=== PATIENT | male | born 1935 | race Caucasian/White ===

== ENCOUNTER 2017-10-23 12:01 | Inpatient (IN) | payer MEDICARE ==
[2017-10-23 13:11] LABS: ADD MAN DIFF? NO
[2017-10-23 13:24] LABS: BASO % 1 % (0-3); EOS # 0.1 x10^3/uL (0.0-0.7); EOS % 3 % (0-3); HEMATOCRIT 39.8 % (39.0-53.0); HEMOGLOBIN 13.1 g/dL (13.0-17.5); LYMPH # 0.7 x10^3/uL (1.0-4.8); LYMPH % 23 % (24-48); MEAN CORPUSCULAR HEMOGLOBIN 29 pg (25-35); MEAN CORPUSCULAR HGB CONC 33 g/dL (31-37); MEAN CORPUSCULAR VOLUME 89 fL (79-100); MONO # 0.2 x10^3/uL (0.0-1.1); MONO % 6 % (0-9); NEUT # 1.9 x10^3uL (1.8-7.7); NEUT % 66 % (31-73); PLATELET COUNT 125 x10^3/uL (140-400); RED BLOOD COUNT 4.47 x10^6/uL (4.30-5.70); RED CELL DISTRIBUTION WIDTH 14.3 % (11.5-14.5); WHITE BLOOD COUNT 2.9 x10^3/uL (4.0-11.0)
[2017-10-23 13:32] LABS: ANION GAP 7 (6-14); BLOOD UREA NITROGEN 11 mg/dL (8-26); BUN/CREATININE RATIO 11 (6-20); CALCIUM 8.4 mg/dL (8.5-10.1); CARBON DIOXIDE 31 mmol/L (21-32); CHLORIDE 103 mmol/L (98-107); GFR 71.7; GLUCOSE 375 mg/dL (70-99); POTASSIUM 4.3 mmol/L (3.5-5.1); SODIUM 141 mmol/L (136-145)
[2017-10-23 13:43] LABS: ALBUMIN 2.9 g/dL (3.4-5.0); ALBUMIN/GLOBULIN RATIO 0.9 (1.0-1.7); ALK PHOS 60 U/L (46-116); ALT (SGPT) 21 U/L (16-63); AST (SGOT) 16 U/L (15-37); TOTAL BILIRUBIN 0.3 mg/dL (0.2-1.0); TOTAL PROTEIN 6.3 g/dL (6.4-8.2)
[2017-10-23] MEDS ORDERED: DEXTROSE 50% 25 GM / 50ML DISP.SYRIN. IV ×2 (14:15)
[2017-10-23] MEDS ORDERED: ALBUTEROL SULFATE 2.5 MG/3 ML NEBU. NEB (14:15)
[2017-10-23] MEDS ORDERED: hydrALAZINE 20 MG/ML VIAL. IVP (14:30)
[2017-10-23] MEDS: POTASSIUM CL 20MEQ D5-0.45NACL 1,000 ML IV (14:59)
[2017-10-23] MEDS: GABAPENTIN 300 MG CAPSULE. PO ×2 (14:59→21:19)
[2017-10-23] MEDS: ENOXAPARIN 40 MG/0.4 ML SYRINGE. SQ (15:00)
[2017-10-23 17:02] LABS: POC GLUCOSE 354 mg/dL (70-99)
[2017-10-23] MEDS: DICYCLOMINE HCL 10 MG CAPSULE PO ×2 (17:16→21:19)
[2017-10-23] MEDS: INSULIN ASPART 300 UNITS/3 ML INSULN.PEN SQ (17:22)
[2017-10-23 19:01] LABS: THYROID STIM HORMONE (TSH) 2.195 uIU/mL (0.358-3.74)
[2017-10-23] MEDS: IPRATRPIUM/ALBUTEROL 0.5/2.5MG 3 ML NEBU. NEB (20:20)
[2017-10-23 20:39] LABS: VITAMIN-B12 538 pg/mL (247-911)
[2017-10-23 21:00] LABS: POC GLUCOSE 407 mg/dL (70-99)
[2017-10-23] MEDS: SIMVASTATIN 10 MG TABLET PO (21:19)
[2017-10-23] MEDS: LACTOBACILLUS RHAMNOSUS GG 1 CAPSULE. PO (21:19)
[2017-10-23] MEDS: INSULIN DETEMIR 300 UNITS/3 ML INSULN.PEN. SQ (21:25)
[2017-10-23] MEDS: MEMANTINE 10 MG TABLET. PO (21:25)
[2017-10-23 21:41] LABS: BILIRUBIN,URINE NEGATIVE (NEG); CLARITY,URINE CLEAR; COLOR,URINE YELLOW; GLUCOSE,URINE >=1000 mg/dL (NEG); NITRITE,URINE NEGATIVE (NEG); PROTEIN,URINE NEGATIVE (NEG-TRACE); UROBILINOGEN,URINE 0.2 mg/dL (0.2 mg/dL)
[2017-10-23 21:46] LABS: BACTERIA,URINE 0 /HPF (0-FEW); RBC,URINE 0 /HPF (0-2); SQUAMOUS EPITHELIAL CELL,UR OCC /LPF
[2017-10-23 21:47] LABS: WBC,URINE RARE /HPF (0-4); YEAST,URINE PRESENT /HPF
[2017-10-24] MEDS: POTASSIUM CL 20MEQ D5-0.45NACL 1,000 ML IV ×2 (03:49→17:41)
[2017-10-24 05:31] LABS: HEMATOCRIT 40.3 % (39.0-53.0); HEMOGLOBIN 13.2 g/dL (13.0-17.5); MEAN CORPUSCULAR HEMOGLOBIN 30 pg (25-35); MEAN CORPUSCULAR HGB CONC 33 g/dL (31-37); MEAN CORPUSCULAR VOLUME 90 fL (79-100); PLATELET COUNT 121 x10^3/uL (140-400); RED BLOOD COUNT 4.46 x10^6/uL (4.30-5.70); RED CELL DISTRIBUTION WIDTH 14.4 % (11.5-14.5); WHITE BLOOD COUNT 3.3 x10^3/uL (4.0-11.0)
[2017-10-24 05:59] LABS: ALBUMIN 2.7 g/dL (3.4-5.0); ALBUMIN/GLOBULIN RATIO 0.8 (1.0-1.7); ALK PHOS 59 U/L (46-116); ALT (SGPT) 18 U/L (16-63); ANION GAP 8 (6-14); AST (SGOT) 15 U/L (15-37); BLOOD UREA NITROGEN 8 mg/dL (8-26); BUN/CREATININE RATIO 9 (6-20); C-REACTIVE PROTEIN 1.9 mg/L (0-3.3); CALCIUM 8.1 mg/dL (8.5-10.1); CARBON DIOXIDE 26 mmol/L (21-32); CHLORIDE 104 mmol/L (98-107); CREATININE 0.9 mg/dL (0.7-1.3); GLUCOSE 303 mg/dL (70-99); POTASSIUM 3.9 mmol/L (3.5-5.1); SODIUM 138 mmol/L (136-145); TOTAL BILIRUBIN 0.3 mg/dL (0.2-1.0)
[2017-10-24 08:14] LABS: SEDIMENTATION RATE 6 (0-15)
[2017-10-24] MEDS: LACTOBACILLUS RHAMNOSUS GG 1 CAPSULE. PO ×2 (08:56→20:31)
[2017-10-24] MEDS: LISINOPRIL 10 MG TABLET PO (08:56)
[2017-10-24] MEDS: ASPIRIN ENTERIC COATED 81 MG TABLET.DR. PO (08:56)
[2017-10-24] MEDS: GABAPENTIN 300 MG CAPSULE. PO ×3 (08:56→20:30)
[2017-10-24] MEDS: DICYCLOMINE HCL 10 MG CAPSULE PO ×4 (08:56→20:32)
[2017-10-24] MEDS: CHOLECALCIFEROL (VITAMIN D3) 1,000 UNIT TABLET PO (08:56)
[2017-10-24] MEDS: MEMANTINE 10 MG TABLET. PO ×2 (08:57→20:30)
[2017-10-24] MEDS: PANTOPRAZOLE IV PUSH 40 MG VIAL. IVP (08:57)
[2017-10-24] MEDS: INSULIN ASPART 300 UNITS/3 ML INSULN.PEN SQ ×3 (09:12→17:44)
[2017-10-24] MEDS: IPRATRPIUM/ALBUTEROL 0.5/2.5MG 3 ML NEBU. NEB ×2 (09:59→20:48)
[2017-10-24 10:26] LABS: POC GLUCOSE 254 mg/dL (70-99)
[2017-10-24] MEDS: CHOLESTYRAMINE/ASPARTAME 4 GM PACKET PO (13:31)
[2017-10-24 13:47] LABS: POC GLUCOSE 317 mg/dL (70-99)
[2017-10-24 17:34] LABS: POC GLUCOSE 278 mg/dL (70-99)
[2017-10-24] MEDS: ENOXAPARIN 40 MG/0.4 ML SYRINGE. SQ (17:34)
[2017-10-24] MEDS: SIMVASTATIN 10 MG TABLET PO (20:32)
[2017-10-24] MEDS: INSULIN DETEMIR 300 UNITS/3 ML INSULN.PEN. SQ (20:48)
[2017-10-24 21:40] LABS: POC GLUCOSE 241 mg/dL (70-99)
[2017-10-25] MEDS: POTASSIUM CL 20MEQ D5-0.45NACL 1,000 ML IV ×2 (05:00→22:01)
[2017-10-25] MEDS: IPRATRPIUM/ALBUTEROL 0.5/2.5MG 3 ML NEBU. NEB ×2 (07:31→21:00)
[2017-10-25 07:40] LABS: POC GLUCOSE 241 mg/dL (70-99)
[2017-10-25] MEDS: CHOLESTYRAMINE/ASPARTAME 4 GM PACKET PO (08:59)
[2017-10-25] MEDS: DICYCLOMINE HCL 10 MG CAPSULE PO ×4 (08:59→22:01)
[2017-10-25] MEDS: CHOLECALCIFEROL (VITAMIN D3) 1,000 UNIT TABLET PO (08:59)
[2017-10-25] MEDS: LISINOPRIL 10 MG TABLET PO (08:59)
[2017-10-25] MEDS: GABAPENTIN 300 MG CAPSULE. PO ×3 (09:00→22:01)
[2017-10-25] MEDS: ASPIRIN ENTERIC COATED 81 MG TABLET.DR. PO (09:00)
[2017-10-25] MEDS: PANTOPRAZOLE 40 MG TABLET.DR. PO (09:00)
[2017-10-25] MEDS: LACTOBACILLUS RHAMNOSUS GG 1 CAPSULE. PO ×2 (09:00→22:01)
[2017-10-25] MEDS: MEMANTINE 10 MG TABLET. PO ×2 (09:00→22:02)
[2017-10-25] MEDS: INSULIN ASPART 300 UNITS/3 ML INSULN.PEN SQ ×3 (09:10→17:49)
[2017-10-25 11:56] LABS: POC GLUCOSE 287 mg/dL (70-99)
[2017-10-25] MEDS: ENOXAPARIN 40 MG/0.4 ML SYRINGE. SQ (14:44)
[2017-10-25 16:49] LABS: POC GLUCOSE 235 mg/dL (70-99)
[2017-10-25 20:57] LABS: POC GLUCOSE 270 mg/dL (70-99)
[2017-10-25] MEDS: SIMVASTATIN 10 MG TABLET PO (22:01)
[2017-10-25] MEDS: INSULIN DETEMIR 300 UNITS/3 ML INSULN.PEN. SQ (22:13)
[2017-10-26 07:00] LABS: ADD MAN DIFF? NO
[2017-10-26 07:08] LABS: BASO % 1 % (0-3); EOS # 0.1 x10^3/uL (0.0-0.7); EOS % 4 % (0-3); HEMATOCRIT 40.7 % (39.0-53.0); HEMOGLOBIN 13.3 g/dL (13.0-17.5); LYMPH # 0.9 x10^3/uL (1.0-4.8); LYMPH % 28 % (24-48); MEAN CORPUSCULAR HEMOGLOBIN 30 pg (25-35); MEAN CORPUSCULAR HGB CONC 33 g/dL (31-37); MEAN CORPUSCULAR VOLUME 90 fL (79-100); MONO # 0.2 x10^3/uL (0.0-1.1); MONO % 6 % (0-9); NEUT # 1.9 x10^3uL (1.8-7.7); NEUT % 60 % (31-73); PLATELET COUNT 115 x10^3/uL (140-400); RED BLOOD COUNT 4.51 x10^6/uL (4.30-5.70); RED CELL DISTRIBUTION WIDTH 14.4 % (11.5-14.5); WHITE BLOOD COUNT 3.2 x10^3/uL (4.0-11.0)
[2017-10-26] MEDS: IPRATRPIUM/ALBUTEROL 0.5/2.5MG 3 ML NEBU. NEB (07:30)
[2017-10-26 07:38] LABS: ALBUMIN 2.8 g/dL (3.4-5.0); ALBUMIN/GLOBULIN RATIO 0.8 (1.0-1.7); ALK PHOS 60 U/L (46-116); ALT (SGPT) 18 U/L (16-63); ANION GAP 7 (6-14); AST (SGOT) 16 U/L (15-37); BLOOD UREA NITROGEN 7 mg/dL (8-26); BUN/CREATININE RATIO 8 (6-20); CALCIUM 8.4 mg/dL (8.5-10.1); CARBON DIOXIDE 30 mmol/L (21-32); CHLORIDE 105 mmol/L (98-107); CREATININE 0.9 mg/dL (0.7-1.3); GLUCOSE 214 mg/dL (70-99); POTASSIUM 4.3 mmol/L (3.5-5.1); SODIUM 142 mmol/L (136-145); TOTAL BILIRUBIN 0.4 mg/dL (0.2-1.0); TOTAL PROTEIN 6.1 g/dL (6.4-8.2)
[2017-10-26 08:01] LABS: POC GLUCOSE 182 mg/dL (70-99)
[2017-10-26] MEDS: POTASSIUM CL 20MEQ D5-0.45NACL 1,000 ML IV (08:05)
[2017-10-26] MEDS: GABAPENTIN 300 MG CAPSULE. PO ×2 (08:05→12:10)
[2017-10-26] MEDS: CHOLECALCIFEROL (VITAMIN D3) 1,000 UNIT TABLET PO (08:05)
[2017-10-26] MEDS: MEMANTINE 10 MG TABLET. PO (08:06)
[2017-10-26] MEDS: LACTOBACILLUS RHAMNOSUS GG 1 CAPSULE. PO (08:06)
[2017-10-26] MEDS: CHOLESTYRAMINE/ASPARTAME 4 GM PACKET PO (08:06)
[2017-10-26] MEDS: DICYCLOMINE HCL 10 MG CAPSULE PO ×2 (08:06→12:10)
[2017-10-26] MEDS: ASPIRIN ENTERIC COATED 81 MG TABLET.DR. PO (08:06)
[2017-10-26] MEDS: PANTOPRAZOLE 40 MG TABLET.DR. PO (08:06)
[2017-10-26] MEDS: LISINOPRIL 10 MG TABLET PO (08:06)
[2017-10-26] MEDS: INSULIN ASPART 300 UNITS/3 ML INSULN.PEN SQ ×2 (08:12→12:26)
[2017-10-26 12:07] LABS: POC GLUCOSE 284 mg/dL (70-99)
== END 2017-10-26 14:20 | disposition home or self-care (01) | DRG 177 ==
LOC: 6 SOUTH 12:01
DX: J69.0 Pneumonitis due to inhalation of food and vomit (principal); G93.41 Metabolic encephalopathy; E11.42 Type 2 diabetes mellitus with diabetic polyneuropathy; F03.90 Unspecified dementia, unspecified severity, without behavioral disturbance, psychotic disturbance, mood disturbance, and anxiety; J98.11 Atelectasis; K21.9 Gastro-esophageal reflux disease without esophagitis; J11.00 Influenza due to unidentified influenza virus with unspecified type of pneumonia; E55.9 Vitamin D deficiency, unspecified; E78.5 Hyperlipidemia, unspecified; I10 Essential (primary) hypertension; I25.10 Atherosclerotic heart disease of native coronary artery without angina pectoris; M10.9 Gout, unspecified; Z87.01 Personal history of pneumonia (recurrent); Z87.891 Personal history of nicotine dependence; Z95.0 Presence of cardiac pacemaker; Z98.41 Cataract extraction status, right eye; Z98.42 Cataract extraction status, left eye
CPT/HCPCS: 36415; 70360; 70450; 70486; 71250; 80053; 81001; 82306; 82607; 82962; 84443; 85025; 85027; 85651; 86140; 92526-GN; 92610-GN; 94640; 94760; 95816; 97110-GO; 97110-GP; 97116-GP; 97162-GP; 97165-GO; 97530-GO; 97530-GP; C9113; J1650; J1815; J1956; J7620

== ENCOUNTER 2017-11-06 17:35 | Inpatient (IN) | payer MEDICARE, OTHER ==
[2017-11-06] MEDS ORDERED: NON FORMULARY ITEM (Albuterol Sulfate (Albuterol Sulfate Conc Neb Soln) 2.5 MG) NEB (18:15)
[2017-11-06] MEDS ORDERED: ONDANSETRON ODT 4 MG TAB.RAPDIS. PO (18:15)
[2017-11-06] MEDS ORDERED: DEXTROSE 50% 25 GM / 50ML DISP.SYRIN. IV (18:30)
[2017-11-06] MEDS ORDERED: ALBUTEROL SULFATE 2.5 MG/3 ML NEBU. NEB (18:45)
[2017-11-06 19:16] LABS: ADD MAN DIFF? NO
[2017-11-06 19:19] LABS: BASO % 1 % (0-3); EOS # 0.1 x10^3/uL (0.0-0.7); EOS % 3 % (0-3); HEMATOCRIT 40.2 % (39.0-53.0); HEMOGLOBIN 13.5 g/dL (13.0-17.5); LYMPH # 0.6 x10^3/uL (1.0-4.8); LYMPH % 24 % (24-48); MEAN CORPUSCULAR HEMOGLOBIN 30 pg (25-35); MEAN CORPUSCULAR HGB CONC 33 g/dL (31-37); MEAN CORPUSCULAR VOLUME 89 fL (79-100); MONO # 0.2 x10^3/uL (0.0-1.1); MONO % 6 % (0-9); NEUT # 1.5 x10^3uL (1.8-7.7); NEUT % 65 % (31-73); PLATELET COUNT 79 x10^3/uL (140-400); RED BLOOD COUNT 4.51 x10^6/uL (4.30-5.70); WHITE BLOOD COUNT 2.3 x10^3/uL (4.0-11.0)
[2017-11-06 19:40] LABS: ALBUMIN 2.9 g/dL (3.4-5.0); ALK PHOS 60 U/L (46-116); ALT (SGPT) 12 U/L (16-63); ANION GAP 2 (6-14); AST (SGOT) 12 U/L (15-37); BLOOD UREA NITROGEN 13 mg/dL (8-26); BUN/CREATININE RATIO 13 (6-20); CALCIUM 8.2 mg/dL (8.5-10.1); CARBON DIOXIDE 33 mmol/L (21-32); CHLORIDE 106 mmol/L (98-107); GFR 71.7; GLUCOSE 145 mg/dL (70-99); POTASSIUM 3.7 mmol/L (3.5-5.1); SODIUM 141 mmol/L (136-145); TOTAL BILIRUBIN 0.3 mg/dL (0.2-1.0); TOTAL PROTEIN 5.9 g/dL (6.4-8.2)
[2017-11-06] MEDS: IPRATRPIUM/ALBUTEROL 0.5/2.5MG 3 ML NEBU. NEB (20:36)
[2017-11-06] MEDS ORDERED: INSULIN DETEMIR 37 UNIT SQ (21:00)
[2017-11-06] MEDS: INSULIN DETEMIR 300 UNITS/3 ML INSULN.PEN. SQ (22:06)
[2017-11-06] MEDS: ENOXAPARIN 40 MG/0.4 ML SYRINGE. SQ (22:07)
[2017-11-06] MEDS: GABAPENTIN 300 MG CAPSULE. PO (22:07)
[2017-11-06] MEDS: SIMVASTATIN 10 MG TABLET PO (22:08)
[2017-11-06] MEDS: MEMANTINE 10 MG TABLET. PO (22:08)
[2017-11-06] MEDS: DICYCLOMINE HCL 10 MG CAPSULE PO (22:08)
[2017-11-07] MEDS: IPRATRPIUM/ALBUTEROL 0.5/2.5MG 3 ML NEBU. NEB ×2 (07:06→19:19)
[2017-11-07 08:03] LABS: POC GLUCOSE 174 mg/dL (70-99)
[2017-11-07] MEDS: GABAPENTIN 300 MG CAPSULE. PO ×3 (08:44→20:34)
[2017-11-07] MEDS: DICYCLOMINE HCL 10 MG CAPSULE PO ×4 (08:44→20:34)
[2017-11-07] MEDS: CHOLECALCIFEROL (VITAMIN D3) 5,000 UNIT CAPSULE PO (08:44)
[2017-11-07] MEDS: LACTOBACILLUS RHAMNOSUS GG 1 CAPSULE. PO ×2 (08:44→17:20)
[2017-11-07] MEDS: ASPIRIN ENTERIC COATED 81 MG TABLET.DR. PO (08:45)
[2017-11-07] MEDS: CHOLESTYRAMINE/ASPARTAME 4 GM PACKET PO (08:45)
[2017-11-07] MEDS: PANTOPRAZOLE 40 MG TABLET.DR. PO (08:45)
[2017-11-07] MEDS: MEMANTINE 10 MG TABLET. PO ×2 (08:45→20:34)
[2017-11-07] MEDS: LISINOPRIL 10 MG TABLET PO (08:46)
[2017-11-07] MEDS: INSULIN ASPART 300 UNITS/3 ML INSULN.PEN SQ ×6 (08:54→17:20)
[2017-11-07] MEDS ORDERED: NON FORMULARY ITEM (Cholecalciferol (Vitamin D3) (Vitamin D3) 1 TAB) PO (09:00)
[2017-11-07 11:34] LABS: POC GLUCOSE 129 mg/dL (70-99)
[2017-11-07 16:45] LABS: POC GLUCOSE 69 mg/dL (70-99)
[2017-11-07 17:23] LABS: POC GLUCOSE 80 mg/dL (70-99)
[2017-11-07] MEDS: SIMVASTATIN 10 MG TABLET PO (20:34)
[2017-11-07] MEDS: ENOXAPARIN 40 MG/0.4 ML SYRINGE. SQ (20:34)
[2017-11-07] MEDS: INSULIN DETEMIR 300 UNITS/3 ML INSULN.PEN. SQ (20:38)
[2017-11-07 20:39] LABS: POC GLUCOSE 243 mg/dL (70-99)
[2017-11-08] MEDS ORDERED: MIDAZOLAM HCL/PF 2 MG/2 ML VIAL. IV (07:15)
[2017-11-08] MEDS ORDERED: LIDOCAINE 1% PF 2 ML VIAL. ID (07:15)
[2017-11-08] MEDS ORDERED: fentaNYL PF VIAL 100 MCG/2 ML VIAL IV (07:15)
[2017-11-08] MEDS: DICYCLOMINE HCL 10 MG CAPSULE PO ×4 (07:30→22:43)
[2017-11-08] MEDS: INSULIN ASPART 300 UNITS/3 ML INSULN.PEN SQ ×7 (07:30→22:45)
[2017-11-08] MEDS: PANTOPRAZOLE 40 MG TABLET.DR. PO (07:30)
[2017-11-08 07:38] LABS: POC GLUCOSE 77 mg/dL (70-99)
[2017-11-08 07:42] LABS: POC GLUCOSE 124 mg/dL (70-99)
[2017-11-08] MEDS: IPRATRPIUM/ALBUTEROL 0.5/2.5MG 3 ML NEBU. NEB ×2 (07:43→19:38)
[2017-11-08] MEDS: CHOLESTYRAMINE/ASPARTAME 4 GM PACKET PO (07:48)
[2017-11-08] MEDS: LACTOBACILLUS RHAMNOSUS GG 1 CAPSULE. PO ×2 (07:49→18:00)
[2017-11-08] MEDS: ASPIRIN ENTERIC COATED 81 MG TABLET.DR. PO (07:49)
[2017-11-08] MEDS: MEMANTINE 10 MG TABLET. PO ×2 (09:00→22:43)
[2017-11-08] MEDS: LISINOPRIL 10 MG TABLET PO (09:00)
[2017-11-08] MEDS: GABAPENTIN 300 MG CAPSULE. PO ×3 (09:00→22:43)
[2017-11-08] MEDS: CHOLECALCIFEROL (VITAMIN D3) 5,000 UNIT CAPSULE PO (09:00)
[2017-11-08 11:37] LABS: POC GLUCOSE 83 mg/dL (70-99)
[2017-11-08] MEDS ORDERED: ceFAZolin SODIUM 1 GM in IV DEXTROSE 5% 50 ML IV (12:30)
[2017-11-08] MEDS: IV RINGERS,LACTATED 1000ML 1,000 ML IV ×3 (12:50→18:24)
[2017-11-08] MEDS ORDERED: LIDOCAINE 2% 100 MG/5 ML SYRINGE. (14:10)
[2017-11-08] MEDS ORDERED: PROPOFOL 20 ML IV (14:10)
[2017-11-08] MEDS: POTASSIUM CL 20MEQ D5-0.45NACL 1,000 ML IV (15:33)
[2017-11-08] MEDS: fentaNYL PF VIAL 100 MCG/2 ML VIAL IV (15:38)
[2017-11-08 16:33] LABS: POC GLUCOSE 134 mg/dL (70-99)
[2017-11-08] MEDS: IV NORMAL SALINE 500ML BAG 500 ML IV ×2 (17:19→18:23)
[2017-11-08] MEDS: ONDANSETRON PF 4 MG/2 ML VIAL. IV (17:50)
[2017-11-08 17:53] LABS: ADD MAN DIFF? NO
[2017-11-08 17:56] LABS: BASO % 0 % (0-3); EOS # 0.1 x10^3/uL (0.0-0.7); EOS % 1 % (0-3); HEMATOCRIT 38.9 % (39.0-53.0); HEMOGLOBIN 12.9 g/dL (13.0-17.5); LYMPH # 1.2 x10^3/uL (1.0-4.8); LYMPH % 16 % (24-48); MEAN CORPUSCULAR HEMOGLOBIN 30 pg (25-35); MEAN CORPUSCULAR HGB CONC 33 g/dL (31-37); MEAN CORPUSCULAR VOLUME 90 fL (79-100); MONO # 0.4 x10^3/uL (0.0-1.1); MONO % 6 % (0-9); NEUT # 5.8 x10^3uL (1.8-7.7); NEUT % 77 % (31-73); PLATELET COUNT 90 x10^3/uL (140-400); RED BLOOD COUNT 4.31 x10^6/uL (4.30-5.70); RED CELL DISTRIBUTION WIDTH 15.1 % (11.5-14.5); WHITE BLOOD COUNT 7.6 x10^3/uL (4.0-11.0)
[2017-11-08 18:11] LABS: ANION GAP 6 (6-14); BLOOD UREA NITROGEN 7 mg/dL (8-26); BUN/CREATININE RATIO 6 (6-20); CALCIUM 8.3 mg/dL (8.5-10.1); CARBON DIOXIDE 27 mmol/L (21-32); CHLORIDE 107 mmol/L (98-107); CREATININE 1.1 mg/dL (0.7-1.3); GFR 64.2; GLUCOSE 224 mg/dL (70-99); POTASSIUM 3.8 mmol/L (3.5-5.1); SODIUM 140 mmol/L (136-145)
[2017-11-08 18:18] LABS: ALBUMIN 2.4 g/dL (3.4-5.0); ALBUMIN/GLOBULIN RATIO 0.8 (1.0-1.7); ALK PHOS 60 U/L (46-116); ALT (SGPT) 13 U/L (16-63); AST (SGOT) 27 U/L (15-37); TOTAL BILIRUBIN 0.4 mg/dL (0.2-1.0); TOTAL PROTEIN 5.6 g/dL (6.4-8.2)
[2017-11-08 21:04] LABS: POC GLUCOSE 225 mg/dL (70-99)
[2017-11-08 22:33] LABS: POC GLUCOSE 236 mg/dL (70-99)
[2017-11-08] MEDS: IV NORMAL SALINE 1000ML BAG 1,000 ML IV (22:40)
[2017-11-08] MEDS: SIMVASTATIN 10 MG TABLET PO (22:43)
[2017-11-08] MEDS: INSULIN DETEMIR 300 UNITS/3 ML INSULN.PEN. SQ (22:46)
[2017-11-09] MEDS: POTASSIUM CL 20MEQ D5-0.45NACL 1,000 ML IV (01:20)
[2017-11-09 01:44] LABS: HEMATOCRIT 33.5 % (39.0-53.0); HEMOGLOBIN 11.1 g/dL (13.0-17.5); MEAN CORPUSCULAR HEMOGLOBIN 30 pg (25-35); MEAN CORPUSCULAR HGB CONC 33 g/dL (31-37); MEAN CORPUSCULAR VOLUME 90 fL (79-100); PLATELET COUNT 75 x10^3/uL (140-400); RED BLOOD COUNT 3.73 x10^6/uL (4.30-5.70); RED CELL DISTRIBUTION WIDTH 15.1 % (11.5-14.5); WHITE BLOOD COUNT 5.1 x10^3/uL (4.0-11.0)
[2017-11-09] MEDS: NOREPINEPHRIN PREMIX 250 ML IV (03:53)
[2017-11-09] MEDS: IV RINGERS,LACTATED 1000ML 1,000 ML IV ×2 (04:53→09:08)
[2017-11-09 05:23] LABS: ADD MAN DIFF? NO
[2017-11-09 05:42] LABS: BASO % 0 % (0-3); EOS % 0 % (0-3); HEMATOCRIT 33.8 % (39.0-53.0); HEMOGLOBIN 11.3 g/dL (13.0-17.5); LYMPH # 0.6 x10^3/uL (1.0-4.8); LYMPH % 11 % (24-48); MEAN CORPUSCULAR HEMOGLOBIN 30 pg (25-35); MEAN CORPUSCULAR HGB CONC 33 g/dL (31-37); MEAN CORPUSCULAR VOLUME 90 fL (79-100); MONO # 0.2 x10^3/uL (0.0-1.1); MONO % 4 % (0-9); NEUT # 4.4 x10^3uL (1.8-7.7); NEUT % 84 % (31-73); PLATELET COUNT 83 x10^3/uL (140-400); RED BLOOD COUNT 3.77 x10^6/uL (4.30-5.70); RED CELL DISTRIBUTION WIDTH 15.3 % (11.5-14.5); WHITE BLOOD COUNT 5.2 x10^3/uL (4.0-11.0)
[2017-11-09 06:07] LABS: ALBUMIN 2.4 g/dL (3.4-5.0); ALBUMIN/GLOBULIN RATIO 0.9 (1.0-1.7); ALK PHOS 64 U/L (46-116); ALT (SGPT) 12 U/L (16-63); ANION GAP 7 (6-14); AST (SGOT) 19 U/L (15-37); BLOOD UREA NITROGEN 13 mg/dL (8-26); BUN/CREATININE RATIO 10 (6-20); CALCIUM 8.1 mg/dL (8.5-10.1); CARBON DIOXIDE 28 mmol/L (21-32); CHLORIDE 108 mmol/L (98-107); CREATININE 1.3 mg/dL (0.7-1.3); GLUCOSE 241 mg/dL (70-99); SODIUM 143 mmol/L (136-145); TOTAL BILIRUBIN 0.4 mg/dL (0.2-1.0); TOTAL PROTEIN 5.1 g/dL (6.4-8.2)
[2017-11-09 06:12] LABS: POTASSIUM 4.9 mmol/L (3.5-5.1)
[2017-11-09 06:52] LABS: POC GLUCOSE 185 mg/dL (70-99)
[2017-11-09] MEDS: PANTOPRAZOLE 40 MG TABLET.DR. PO (07:30)
[2017-11-09] MEDS: INSULIN ASPART 300 UNITS/3 ML INSULN.PEN SQ ×5 (07:30→18:00)
[2017-11-09] MEDS: DICYCLOMINE HCL 10 MG CAPSULE PO ×4 (07:30→21:00)
[2017-11-09] MEDS: CHOLESTYRAMINE/ASPARTAME 4 GM PACKET PO (08:00)
[2017-11-09] MEDS: LACTOBACILLUS RHAMNOSUS GG 1 CAPSULE. PO ×2 (09:00→14:55)
[2017-11-09] MEDS: ASPIRIN ENTERIC COATED 81 MG TABLET.DR. PO (09:00)
[2017-11-09] MEDS: GABAPENTIN 300 MG CAPSULE. PO ×3 (09:00→21:00)
[2017-11-09] MEDS: MEMANTINE 10 MG TABLET. PO ×2 (09:00→21:00)
[2017-11-09] MEDS: LISINOPRIL 10 MG TABLET PO (09:00)
[2017-11-09] MEDS: CHOLECALCIFEROL (VITAMIN D3) 5,000 UNIT CAPSULE PO (09:00)
[2017-11-09] MEDS: IV NORMAL SALINE 1000ML BAG 1,000 ML IV (09:08)
[2017-11-09] MEDS: IPRATRPIUM/ALBUTEROL 0.5/2.5MG 3 ML NEBU. NEB ×2 (09:42→19:35)
[2017-11-09 11:11] LABS: HEMOGLOBIN 10.4 g/dL (13.0-17.5)
[2017-11-09 11:52] LABS: POC GLUCOSE 144 mg/dL (70-99)
[2017-11-09 16:14] LABS: SECOND ABO/RH TYPE 1 1
[2017-11-09 16:48] LABS: HEMOGLOBIN 9.6 g/dL (13.0-17.5)
[2017-11-09 18:17] LABS: POC GLUCOSE 76 mg/dL (70-99)
[2017-11-09 20:11] LABS: MRSA BY PCR Negative (Negative)
[2017-11-09] MEDS: SIMVASTATIN 10 MG TABLET PO (21:00)
[2017-11-09 21:42] LABS: POC GLUCOSE 75 mg/dL (70-99)
[2017-11-10] MEDS: IV RINGERS,LACTATED 1000ML 1,000 ML IV ×2 (00:38→10:49)
[2017-11-10 03:19] LABS: HEMOGLOBIN A1C 8.7 % (4.8-5.6)
[2017-11-10 03:41] LABS: POC GLUCOSE 74 mg/dL (70-99)
[2017-11-10] MEDS: ONDANSETRON PF 4 MG/2 ML VIAL. IV (03:46)
[2017-11-10 04:08] LABS: HEMATOCRIT 28.4 % (39.0-53.0); HEMOGLOBIN 9.5 g/dL (13.0-17.5); MEAN CORPUSCULAR HEMOGLOBIN 30 pg (25-35); MEAN CORPUSCULAR HGB CONC 33 g/dL (31-37); MEAN CORPUSCULAR VOLUME 89 fL (79-100); PLATELET COUNT 93 x10^3/uL (140-400); RED BLOOD COUNT 3.18 x10^6/uL (4.30-5.70); RED CELL DISTRIBUTION WIDTH 15.2 % (11.5-14.5); WHITE BLOOD COUNT 3.1 x10^3/uL (4.0-11.0)
[2017-11-10 04:23] LABS: ALBUMIN 2.3 g/dL (3.4-5.0); ALBUMIN/GLOBULIN RATIO 0.8 (1.0-1.7); ALK PHOS 57 U/L (46-116); ALT (SGPT) 10 U/L (16-63); ANION GAP 4 (6-14); AST (SGOT) 15 U/L (15-37); BLOOD UREA NITROGEN 11 mg/dL (8-26); BUN/CREATININE RATIO 12 (6-20); CALCIUM 7.8 mg/dL (8.5-10.1); CARBON DIOXIDE 32 mmol/L (21-32); CHLORIDE 108 mmol/L (98-107); CREATININE 0.9 mg/dL (0.7-1.3); GLUCOSE 91 mg/dL (70-99); POTASSIUM 4.2 mmol/L (3.5-5.1); SODIUM 144 mmol/L (136-145); TOTAL BILIRUBIN 0.3 mg/dL (0.2-1.0); TOTAL PROTEIN 5.1 g/dL (6.4-8.2)
[2017-11-10] MEDS: INSULIN ASPART 300 UNITS/3 ML INSULN.PEN SQ ×4 (05:29→18:42)
[2017-11-10] MEDS: IPRATRPIUM/ALBUTEROL 0.5/2.5MG 3 ML NEBU. NEB ×2 (07:05→20:00)
[2017-11-10] MEDS: LISINOPRIL 10 MG TABLET PO (09:00)
[2017-11-10] MEDS: GABAPENTIN 300 MG CAPSULE. PO ×3 (10:00→21:27)
[2017-11-10] MEDS: CHOLECALCIFEROL (VITAMIN D3) 5,000 UNIT CAPSULE PO (10:00)
[2017-11-10] MEDS: LANSOPRAZOLE 30 MG TAB.RAP.DR PEG (10:00)
[2017-11-10] MEDS: MEMANTINE 10 MG TABLET. PO ×2 (10:00→21:27)
[2017-11-10] MEDS: DICYCLOMINE HCL 10 MG CAPSULE PO ×4 (10:00→21:27)
[2017-11-10] MEDS: ASPIRIN ENTERIC COATED 81 MG TABLET.DR. PO (10:00)
[2017-11-10] MEDS: CHOLESTYRAMINE/ASPARTAME 4 GM PACKET PO (10:00)
[2017-11-10] MEDS: LACTOBACILLUS RHAMNOSUS GG 1 CAPSULE. PO ×2 (10:00→18:20)
[2017-11-10 12:20] LABS: POC GLUCOSE 175 mg/dL (70-99)
[2017-11-10 12:47] LABS: POC GLUCOSE 169 mg/dL (70-99)
[2017-11-10 16:38] LABS: HEMOGLOBIN 8.8 g/dL (13.0-17.5)
[2017-11-10 16:38] LABS: HEMATOCRIT 25.9 % (39.0-53.0)
[2017-11-10 18:40] LABS: POC GLUCOSE 187 mg/dL (70-99)
[2017-11-10] MEDS: SIMVASTATIN 10 MG TABLET PO (21:27)
[2017-11-10 23:49] LABS: POC GLUCOSE 232 mg/dL (70-99)
[2017-11-11] MEDS: IV RINGERS,LACTATED 1000ML 1,000 ML IV (00:04)
[2017-11-11] MEDS: INSULIN ASPART 300 UNITS/3 ML INSULN.PEN SQ ×4 (00:08→18:11)
[2017-11-11 06:05] LABS: POC GLUCOSE 209 mg/dL (70-99)
[2017-11-11] MEDS: DICYCLOMINE HCL 10 MG CAPSULE PO ×4 (06:12→21:53)
[2017-11-11 06:14] LABS: HEMATOCRIT 30.2 % (39.0-53.0); HEMOGLOBIN 10.2 g/dL (13.0-17.5); MEAN CORPUSCULAR HEMOGLOBIN 30 pg (25-35); MEAN CORPUSCULAR HGB CONC 34 g/dL (31-37); MEAN CORPUSCULAR VOLUME 89 fL (79-100); PLATELET COUNT 103 x10^3/uL (140-400); RED CELL DISTRIBUTION WIDTH 14.8 % (11.5-14.5); WHITE BLOOD COUNT 2.7 x10^3/uL (4.0-11.0)
[2017-11-11 06:31] LABS: ALBUMIN 2.7 g/dL (3.4-5.0); ALBUMIN/GLOBULIN RATIO 0.8 (1.0-1.7); ALK PHOS 68 U/L (46-116); ALT (SGPT) 11 U/L (16-63); ANION GAP 4 (6-14); AST (SGOT) 17 U/L (15-37); BLOOD UREA NITROGEN 11 mg/dL (8-26); BUN/CREATININE RATIO 12 (6-20); CALCIUM 7.9 mg/dL (8.5-10.1); CARBON DIOXIDE 32 mmol/L (21-32); CHLORIDE 103 mmol/L (98-107); CREATININE 0.9 mg/dL (0.7-1.3); GLUCOSE 223 mg/dL (70-99); POTASSIUM 4.1 mmol/L (3.5-5.1); SODIUM 139 mmol/L (136-145); TOTAL BILIRUBIN 0.4 mg/dL (0.2-1.0); TOTAL PROTEIN 5.9 g/dL (6.4-8.2)
[2017-11-11 06:50] LABS: POC GLUCOSE 198 mg/dL (70-99)
[2017-11-11] MEDS: IPRATRPIUM/ALBUTEROL 0.5/2.5MG 3 ML NEBU. NEB ×2 (08:17→19:18)
[2017-11-11] MEDS: ASPIRIN ENTERIC COATED 81 MG TABLET.DR. PO (08:51)
[2017-11-11] MEDS: LANSOPRAZOLE 30 MG TAB.RAP.DR PEG (08:51)
[2017-11-11] MEDS: GABAPENTIN 300 MG CAPSULE. PO ×3 (08:51→21:53)
[2017-11-11] MEDS: MEMANTINE 10 MG TABLET. PO ×2 (08:51→21:53)
[2017-11-11] MEDS: LISINOPRIL 10 MG TABLET PO (08:52)
[2017-11-11] MEDS: CHOLECALCIFEROL (VITAMIN D3) 5,000 UNIT CAPSULE PO (08:53)
[2017-11-11] MEDS: LACTOBACILLUS RHAMNOSUS GG 1 CAPSULE. PO ×2 (10:01→17:55)
[2017-11-11] MEDS: CHOLESTYRAMINE/ASPARTAME 4 GM PACKET PO (11:26)
[2017-11-11 12:19] LABS: POC GLUCOSE 192 mg/dL (70-99)
[2017-11-11 17:55] LABS: POC GLUCOSE 192 mg/dL (70-99)
[2017-11-11] MEDS: SIMVASTATIN 10 MG TABLET PO (21:53)
[2017-11-12 00:15] LABS: POC GLUCOSE 249 mg/dL (70-99)
[2017-11-12] MEDS: INSULIN ASPART 300 UNITS/3 ML INSULN.PEN SQ ×3 (00:33→12:27)
[2017-11-12 04:52] LABS: HEMATOCRIT 29.3 % (39.0-53.0); HEMOGLOBIN 9.9 g/dL (13.0-17.5); MEAN CORPUSCULAR HEMOGLOBIN 30 pg (25-35); MEAN CORPUSCULAR HGB CONC 34 g/dL (31-37); MEAN CORPUSCULAR VOLUME 89 fL (79-100); PLATELET COUNT 108 x10^3/uL (140-400); RED CELL DISTRIBUTION WIDTH 14.9 % (11.5-14.5); WHITE BLOOD COUNT 2.2 x10^3/uL (4.0-11.0)
[2017-11-12 05:26] LABS: ALBUMIN 2.8 g/dL (3.4-5.0); ALBUMIN/GLOBULIN RATIO 0.9 (1.0-1.7); ALK PHOS 78 U/L (46-116); ALT (SGPT) 9 U/L (16-63); ANION GAP 7 (6-14); AST (SGOT) 8 U/L (15-37); BLOOD UREA NITROGEN 12 mg/dL (8-26); BUN/CREATININE RATIO 15 (6-20); CALCIUM 8.7 mg/dL (8.5-10.1); CARBON DIOXIDE 31 mmol/L (21-32); CHLORIDE 104 mmol/L (98-107); CREATININE 0.8 mg/dL (0.7-1.3); GFR 92.8; GLUCOSE 273 mg/dL (70-99); POTASSIUM 4.3 mmol/L (3.5-5.1); SODIUM 142 mmol/L (136-145); TOTAL BILIRUBIN 0.4 mg/dL (0.2-1.0)
[2017-11-12 06:12] LABS: POC GLUCOSE 248 mg/dL (70-99)
[2017-11-12] MEDS: IPRATRPIUM/ALBUTEROL 0.5/2.5MG 3 ML NEBU. NEB (07:58)
[2017-11-12] MEDS: CHOLESTYRAMINE/ASPARTAME 4 GM PACKET PO (08:00)
[2017-11-12] MEDS: DICYCLOMINE HCL 10 MG CAPSULE PO ×2 (08:42→12:20)
[2017-11-12] MEDS: CHOLECALCIFEROL (VITAMIN D3) 5,000 UNIT CAPSULE PO (08:42)
[2017-11-12] MEDS: GABAPENTIN 300 MG CAPSULE. PO (08:42)
[2017-11-12] MEDS: LANSOPRAZOLE 30 MG TAB.RAP.DR PEG (08:42)
[2017-11-12] MEDS: LACTOBACILLUS RHAMNOSUS GG 1 CAPSULE. PO (08:42)
[2017-11-12] MEDS: ASPIRIN ENTERIC COATED 81 MG TABLET.DR. PO (08:43)
[2017-11-12] MEDS: LISINOPRIL 10 MG TABLET PO (08:43)
[2017-11-12] MEDS: MEMANTINE 10 MG TABLET. PO (08:43)
[2017-11-12 11:46] LABS: POC GLUCOSE 262 mg/dL (70-99)
== END 2017-11-12 15:21 | disposition home or self-care (01) | DRG 177 ==
LOC: 1 WEST ICU 11-09 02:31 → 5 NORTH 11-10 12:40 → 5 SOUTH 17:35
PROVIDERS: Internal Medicine; Neurological Surgery
PROC: 0DH63UZ Insertion of Feeding Device into Stomach, Percutaneous Approach (ICD-10-PCS; principal; 2017-11-08 14:19)
PROC: 30233N1 Transfusion of Nonautologous Red Blood Cells into Peripheral Vein, Percutaneous Approach (ICD-10-PCS; 2017-11-08 14:19)
DX: J69.0 Pneumonitis due to inhalation of food and vomit (principal); E43 Unspecified severe protein-calorie malnutrition; K66.1 Hemoperitoneum; N17.9 Acute kidney failure, unspecified; J96.10 Chronic respiratory failure, unspecified whether with hypoxia or hypercapnia; R13.19 Other dysphagia; I95.9 Hypotension, unspecified; E11.65 Type 2 diabetes mellitus with hyperglycemia; E86.0 Dehydration; E78.5 Hyperlipidemia, unspecified; I10 Essential (primary) hypertension; I25.10 Atherosclerotic heart disease of native coronary artery without angina pectoris; K21.9 Gastro-esophageal reflux disease without esophagitis; K52.9 Noninfective gastroenteritis and colitis, unspecified; Z87.891 Personal history of nicotine dependence; Z88.8 Allergy status to other drugs, medicaments and biological substances
CPT/HCPCS: 36415; 74176; 80053; 82962; 83036; 85014; 85018; 85025; 85027; 85610; 86850; 86900; 86901; 87641; 93005; 94618; 94640; 94760; 97161-GP; 97165-GO; J0690; J1650; J1815; J2405; J2704; J3010; J7030; J7040; J7120; J7620; P9035

== ENCOUNTER 2018-02-24 18:54 | Emergency (ER) | payer MEDICARE, OTHER ==
[2018-02-24] MEDS: SODIUM PHOSPHATES 19/7GM 133 ML ENEMA. PR (20:45)
== END 2018-02-24 22:25 | disposition home or self-care (01) ==
LOC: ER 18:54
DX: K59.00 Constipation, unspecified (principal); J69.0 Pneumonitis due to inhalation of food and vomit
CPT/HCPCS: 74022; 99284